=== PATIENT | male | born 1990 ===

== ENCOUNTER 2017-12-29 09:53 | Outpatient (REF) | payer OTHER, SELFPAY ==
[2017-12-29 20:08] LABS: Abs Immature Grans 0.02 k/cumm (0.0-0.09); Absolute Basophil Count 0.02 k/cumm (0.0-0.2); Absolute Eosinophil Count 0.15 k/cumm (0.0-0.7); Absolute Lymphocyte Count 1.83 k/cumm (1.2-3.4); Absolute Monocyte Count 0.71 k/cumm (0.11-0.7); Basophils % 0.2; Eosinophils % 1.8; HCT 42.8 % (40.0-50.0); HGB 14.6 g/dL (13.5-17.5); Immature Grans % 0.2; Lymphocytes % 21.5; Mean Corp. HGB Concentration 34.1 g/dL (32.0-36.0); Mean Corpuscular Hemoglobin 29.7 pg (27.0-33.0); Mean Platelet Volume 10.6 fL (8.0-11.0); Monocytes % 8.3; Platelet Count 227 x1000/uL (130-400); RBC 4.92 m/cumm (4.50-6.00); RBC Distribution Width 13.7 % (11.8-14.1); White Blood Cell Count 8.53 k/cumm (4.4-10.8)
[2017-12-29 20:39] LABS: ALT 42 U/L (12-78); AST 27 U/L (15-37); Albumin 3.9 g/dL (3.4-5.0); Alkaline Phosphatase 81 U/L (46-116); Anion Gap 11.8 mmol/L (3-11); BUN 13 mg/dL (7-18); Bilirubin, Total 0.3 mg/dL (0.2-1.0); CO2 25.2 mmol/L (21.0-32.0); CREATININE 0.77 mg/dL (0.70-1.30); Calcium 8.7 mg/dL (8.5-10.1); Chloride 101 mmol/L (98-107); Glucose 109 mg/dL (70-100); Potassium 4.2 mmol/L (3.5-5.1); Sodium 138 mmol/L (136-145); TSH 2.48 uIU/mL (0.358-3.74); Total Protein 7.4 g/dL (6.4-8.2)
[2017-12-31 20:25] LABS: Tissue Transglutaminase Ab IgA <1.2 U/mL
== END 2017-12-29 10:13 ==
LOC: NCHCN 09:53
PROVIDERS: Visit Provider Physician Assistant Medical
DX: K21.0 Gastro-esophageal reflux disease with esophagitis (principal); F41.8 Other specified anxiety disorders; R42 Dizziness and giddiness
CPT/HCPCS: 80053; 83516; 84443; 85025